=== PATIENT | female | born 1995 | race Hispanic/Latino ===

== ENCOUNTER 2017-03-31 15:12 | Emergency (ER) | payer BC ==
[~2017-03-31] VITALS: Ht 152.4 cm; Wt 54.4 kg
[2017-03-31] MEDS ORDERED: ONDANSETRON HCL INJ 2 MG/ML VIAL IV STA (16:56)
[2017-03-31] MEDS ORDERED: SODIUM CHLORIDE 0.9% 1000ML 1,000 ML IV SCH (17:00)
[2017-03-31] MEDS ORDERED: POTASSIUM CHLORIDE 20 MEQ TAB CR PO STA (17:32)
[2017-03-31 19:14] VITALS: BP 125/70
== END 2017-03-31 19:16 | disposition home or self-care (01) ==
LOC: FSED 15:12
DX: R10.84 Generalized abdominal pain (principal); E87.6 Hypokalemia
CPT/HCPCS: 80053; 85025; 99283; J2405